=== PATIENT | female | born 1970 | race Caucasian/White ===

== ENCOUNTER 2016-11-07 10:00 | Emergency (ER) | payer MEDICAID, OTHER ==
[2016-11-07 10:20] VITALS: BP 122/87; PULSE 65; RESP 16; TEMP 98.8; O2SAT 100
--- NOTE | 2016-11-07 10:43 | UCPHY ---
H & P Time Seen by Provider: 11/07/16 10:36 Patient Type: New HPI/ROS: CHIEF COMPLAINT: Mouth infection HISTORY OF PRESENT ILLNESS: Patient is a 46-year-old female who presents emergency department with left upper mouth infection. She noticed her symptoms on Thursday. On she saw her dentist. She had x-rays at that time which were negative. She was started on oral penicillin. Today she noticed increasing left-sided facial swelling and left upper dental pain. She also notices a small ball like lesion above the tooth that hurts. She has had no fevers or chills. No shortness of breath. No throat swelling. REVIEW OF SYSTEMS: My complete review of systems is negative except as mentioned in the HPI. Past Medical/Surgical History: Negative Past surgical history: Negative Social history: The patient does not smoke. Smoking Status: Never smoked Physical Exam: Vitals noted General Appearance: Alert and no distress. Head: Pupils equal. Normal. Mild left-sided facial swelling. No facial tenderness palpation. No facial erythema or warmth. Her eyes appear normal with no proptosis. Oral: Patient has normal appearing mucosa except for the left upper lateral gum. There is a small spherical fold in tissue. There is minimal redness. Mildly tender to palpation. The tooth is nontender. Respiratory: No respiratory distress. Cardiac: regular rate and rhythm. Extremities: Full range of motion, normal appearing. Skin: No rashes or lesions. Neuro: Alert. Normal mood and affect. Constitutional: Initial Vital Signs Temperature (C) 37.1 C 11/07/16 10:17 Heart Rate 65 11/07/16 10:17 Respiratory Rate 16 11/07/16 10:17 Blood Pressure 122/87 H 11/07/16 10:17 O2 Sat (%) 100 11/07/16 10:17 O2 Delivery Mode Room Air Allergies/Adverse Reactions: No Known Allergies Allergy (Unverified 11/07/16 10:16) Home Medications: Medication Instructions Recorded MOTRIN 11/07/16 Penicillin G Sodium 11/07/16 Tylenol 11/07/16 Medical Decision Making ED Course/Re-evaluation: I discussed the plan with the patient. She is given warnings prior to leaving. She will follow up with her dentist today. She will continue to take her penicillin. Differential Diagnosis: Patient appears well on exam on does not appear septic or toxic. She is afebrile. Oral exam reveals a small spherical lesion. I feel this may need drainage by a dentist. I discussed this at length with the patient. I feel it is more appropriate for dentist for this procedure. She does not appear have any acute emergency on my exam. If the dentist is unable to fix this lesion she will return to Urgent Care or the emergency department. I discussed CT imaging. At this time the patient does not want CT imaging. She would rather see her dentist 1st. She is aware she needs to continue her antibiotics. I have considered abscess, cellulitis, dental infection, sinusitis, periorbital cellulitis, mass, malignancy Departure - Departure Disposition: Home, Routine, Self-Care Clinical Impression: Pain, dental Condition: Good Instructions: Toothache (ED) Additional Instructions: You should go to your dentist today to have this evaluated and treated. If you have worsening or ongoing symptoms he can return to Urgent Care the emergency department. Continue to take your penicillin. Referrals: [facility] [Outside] - As per Instructions [facility] [Outside] - 11/07/16 10:44 am - PQRS PQRS Measurement: My PQRS negative my PQRS negative my PQRS negative my PQRS negative 134: Depression screening and followup, PRIME MD-PHQ2 (12 years and older) Over the last 2 weeks, how often have you been bothered by any of the following problems? 1. Feeling down, depressed, or hopeless? 2. Little interest or pleasure in doing things? Patient answered no to both 1 and 2 130: Documentation of medications. Reviewed all patient medications, doses, route and frequency. 226: Do you smoke? No.
== END 2016-11-07 11:16 | disposition home or self-care (01) ==
LOC: CED 10:00
DX: K08.89 Other specified disorders of teeth and supporting structures (principal)
CPT/HCPCS: 99203-PO; G0463-PO

== ENCOUNTER 2017-04-26 13:10 | Emergency (ER) | payer MEDICAID ==
[2017-04-26] MEDS ORDERED: PROPARACAINE 0.5% 15 ML OPHT DROP ONE (13:15)
[2017-04-26] MEDS ORDERED: FLUORESCEIN SODIUM 1 MG STRIP OP ONE (13:15)
--- NOTE | 2017-04-26 13:42 | EDPHY ---
H & P Time Seen by Provider: 04/26/17 13:37 HPI/ROS: CHIEF COMPLAINT: Right eye pain HISTORY OF PRESENT ILLNESS: Patient is a 38-year-old female with no past medical history presents to the emergency department with fairly sudden onset of right eye pain. Patient describes her symptoms as a foreign body sensation. Her pain is moderate to severe. It is not worse with light. She describes her pain at the 10 o'clock position as she looks at the clock. She has had no recent trauma. Her symptoms started while she was sitting in [employer]. She stated it was windy when she walked in but she did not note foreign body. REVIEW OF SYSTEMS: My complete review of systems is negative except as mentioned in the HPI. Past Medical/Surgical History: Negative Past surgical history: Negative Social history: The patient does not smoke Smoking Status: Never smoked Physical Exam: GENERAL: Well-appearing, in no acute distress, alert. Visual acuity: Noted. Eyelids: Normal inspection, everted for exam. No visible foreign body. Conjunctiva and sclera: Normal inspection. No foreign material. No subconjunctival hemorrhage. No exudate. Not injected. Corneas: Normal inspection. Examined with fluorescein dye: No uptake, abrasion, or ulcer. EOMs: Intact. Pupils: The right pupil is slightly larger than the left. A they are both reactive. Normal accommodation. Anterior chambers: Normal inspection. No hyphema. No cells or flare. Posterior segments: Normal funduscopic exam Constitutional: Initial Vital Signs Temperature (C) 36.7 C 04/26/17 13:25 Heart Rate 66 04/26/17 13:25 Respiratory Rate 16 04/26/17 13:25 Blood Pressure 121/75 H 04/26/17 13:25 O2 Sat (%) 96 04/26/17 13:25 O2 Delivery Mode Room Air Allergies/Adverse Reactions: No Known Allergies Allergy (Verified 04/26/17 13:24) Home Medications: Medication Instructions Recorded Hydrocodone/APAP 5/325 [[place] 1 - 2 tab PO Q4 #7 tab 04/26/17 5/325 (RX)] Medical Decision Making ED Course/Re-evaluation: The patient was given proparacaine drops for exam. Upon giving the drops patient's pain completely resolved. Jim-Pen exam: Pressure 19, 20 on 2 measurements. I discussed the case with Dr. Escalera from Ophthalmology. I discussed the presentation, unequal pupil size along with the rest of the physical exam. He felt comfortable having the patient follow up in his office tomorrow. He recommended antibiotic drops. I discussed the findings with the patient. Answered all her questions. She was given ciprofloxacin drops from a [facility]. Differential Diagnosis: My differential includes but is not limited to acute angle glaucoma, conjunctivitis, foreign body, mydriasis, iritis, ulcer, abrasion Departure - Departure Disposition: Home, Routine, Self-Care Clinical Impression: Pain, eye, right Condition: Good Instructions: Eye Pain (ED), Corneal Abrasion (ED) Additional Instructions: You need to follow up with Dr. Escalera tomorrow. Call his office in the morning to make an appointment. Use your drops given in the emergency department. You should take 2 drops every 2 hours in your right eye while awake. Referrals: SHIELA BRIGGS,. [Primary Care Provider] - As per Instructions Jose Escalera MD [Medical Doctor] - 1 day without fail Prescriptions: Hydrocodone/APAP 5/325 [[place] 5/325 (RX)] 1 - 2 tab PO Q4 #7 tab
[2017-04-26 13:44] VITALS: BP 121/75; PULSE 66; RESP 16; TEMP 98.1; O2SAT 96
[2017-04-26] MEDS ORDERED: CIPROFLOXACIN 3.5 GM OPHT.OINT RTEYE SCH (16:00)
== END 2017-04-26 14:14 | disposition home or self-care (01) ==
LOC: CED 13:10
DX: H57.11 Ocular pain, right eye (principal)